=== PATIENT | female | born 1980 | race Caucasian/White ===

== ENCOUNTER 2017-04-29 07:18 | Day surgery (SDC) | payer BC ==
--- NOTE | ~2017-04-29 | OP ---
Record Of Operation [facility] [address] [place]. [address] NAME: DEB ROOT : 82 STATUS : REG [facility]#: [id number] AGE: 36 ADM/REG DATE : 04/29/17 MR#: [id number] REPORT SERV DATE: 04/29/17 DICTATED BY: DUNCAN RIGGINS JR. DATE: 04/29/17 REPORT STATUS : Draft TRANSCRIBED BY: SALVADOR DATE: 04/29/17 DATE OF PROCEDURE: REASON FOR SURGERY: This 36-year-old patient was seen by me multiple for fibroadenomas of the breast. She has had surgery in the past and has had progression of three large distorting tumors in the right breast protruding and becoming very large. Surgery is certainly indicated and hopefully a good cosmetic result can be achieved. PREOPERATIVE DIAGNOSIS: Multiple fibroadenomas, right breast. POSTOPERATIVE DIAGNOSIS: Multiple fibroadenomas, right breast. SURGERY PERFORMED: Excision of fibroadenoma, right breast x3. DESCRIPTION OF PROCEDURE: Under general anesthesia, the patient was prepped and draped in supine position in usual sterile fashion. A curvilinear incision was made just above the inframammary sulcus on the right side. Dissection was carried into the fatty tissue and then within the parenchyma, a dissection was carried underneath to the surface of the lesion of 4 o'clock. A 3-dimensional excision was performed of this large tumor. Through the same incision, tunneling was performed to the 6 o'clock position where the nodular mass was also excised in toto. The wound was irrigated and hemostasis was obtained. The wound was closed with two layers of Monocryl. Attention was then turned to the very large mass at 12 o'clock. A curvilinear incision was made just below the axillary fold on the right side. Vertical dissection was carried down into the depths of the parenchyma and then tunneling was performed for a distance of about 8 cm until the surface of the complex mass was encountered. A 3-dimensional excision was performed and specimen removed. The wound was irrigated and hemostasis was obtained. The wound was closed with two layers of Monocryl. The patient tolerated the procedure well without complications. ESTIMATED BLOOD LOSS: 5 mL. SPONGE COUNT: Correct. MR/SALVADOR Duncan Riggins Jr., M.D. / [id number] Record Of Operation [facility] [address] [place]. [address] NAME: DEB ROOT : 82 STATUS : REG [facility] PAT#: [id number] AGE: 36 ADM/REG DATE : 04/29/17 MR#: [id number] REPORT SERV DATE: 04/29/17 DICTATED BY: DUNCAN RIGGINS JR. DATE: 04/29/17 REPORT STATUS : Draft TRANSCRIBED BY: MODL DATE: 04/29/17 CC: Duncan Riggins Jr., M.D. [facility] Emelina Sears MD
[~2017-04-29 07:18] MED LIST: IBU-200200 MG PO; ZYRTEC ALLGY10 MG PO
== END 2017-04-29 12:47 | disposition home or self-care (01) ==
LOC: SDC 07:18
PROVIDERS: Surgery Surgical Oncology
PROC: 0HBTXZZ (ICD-10-PCS; principal; 2017-04-29 08:30)
DX: D49.3 Neoplasm of unspecified behavior of breast (principal); Z90.710 Acquired absence of both cervix and uterus; Z98.890 Other specified postprocedural states; Z98.51 Tubal ligation status; Z79.899 Other long term (current) drug therapy
CPT/HCPCS: 88305; A9270-GY; J0690; J2250; J2405; J3010